=== PATIENT | male | born 1990 | race Caucasian/White ===

== ENCOUNTER 2017-06-04 08:11 | Day surgery (SDC) | payer OTHER ==
--- NOTE | 2017-05-28 15:46 | HP ---
PREOPERATIVE HISTORY AND PHYSICAL: DATE OF SURGERY/ADMISSION: 06/04/17 DATE OF OFFICE VISIT/ENCOUNTER: 05/27/17 ATTENDING SURGEON: Janet Quesada MD* (dictated by LUDMILA Harrison). PROCEDURE: Right index finger synovial biopsy metacarpophalangeal joint, bone biopsy, cortisone injection. CHIEF COMPLAINT: Right index finger MP joint pain and swelling. HISTORY OF PRESENT ILLNESS: This is a 26-year-old male, he is a field sales associate student at [employer] and he complains of pain in his right index finger MP joint since last August. He said that he injured it doing some boxing, but he has had some persistent swelling. He has had an extensive workup including blood work, ultrasound, and MRI. He was recently placed on sulfasalazine by Dr. Day for treatment of this. The patient reports that he does not think the medication has helped to this point. He also takes ibuprofen p.r.n. as well. 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 He denies any breaks in the skin and has not had any fevers. There is no associated numbness or tingling. After evaluation by and discussion with Dr. Quesada, he has agreed to proceed with surgical intervention at this time. PAST MEDICAL HISTORY: 1. Eczema. 2. History of skin cancer. 3. Suspected inflammatory arthritis. PAST SURGICAL HISTORY: 1. Skin cancer excision. 2. Deviated septum repair. 3. [place] teeth extraction. CURRENT MEDICATIONS: 1. Acetaminophen 325 mg 2 tabs q.6 hours p.r.n. 2. Glucosamine chondroitin 1500 complex 2 tabs daily. 3. Ibuprofen p.r.n. 4. Ketoconazole. 5. Multivitamin. 6. Sulfasalazine 500 mg twice daily. 7. Zinc 30 mg daily. ALLERGIES: No known drug allergies. FAMILY MEDICAL HISTORY: Ankylosing spondylitis and rheumatoid arthritis. 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 He denies tobacco use and illicit drug use. He does drink alcohol on occasion. REVIEW OF SYSTEMS: General: Negative for fevers, chills, or night sweats. No known anesthesia problems. HEENT: Negative for headache, lightheadedness, or syncopal episodes. Integumentary: Positive for eczema. Negative for abrasions or open wounds. Cardiothoracic: Negative for hypertension, chest pain, palpitations, or edema. Pulmonary: Negative for shortness of breath with exertion, chronic cough, COPD. GI: Negative for nausea, vomiting, diarrhea, constipation, or GERD. : Negative for nocturia, urinary frequency, urgency, history of UTIs, or kidney problems. Musculoskeletal: Positive for current complaint. Negative for chronic or intermittent back pain or history of fractures. Neurological: Negative for paresthesias, numbness, history of seizure, stroke, or epilepsy. Endocrine: Negative for diabetes and thyroid issues. Hematologic: Negative for easy bruising, anemia, excessive bleeding, or history of DVT. Infectious Disease: Negative for history of MRSA, hepatitis C, or HIV. PHYSICAL EXAMINATION GENERAL: Well-developed, well-nourished 26-year-old male, in no acute distress. VITAL SIGNS: Height 5 feet 9 inches, weight 140 pounds. Pulse rate 68, blood pressure 136/70. HEENT: Normocephalic, atraumatic. Pupils are equal, round, and reactive to light and accommodation. Extraocular movements are intact. Throat is clear. NECK: Supple. No palpable lymph nodes. PULMONARY: Lungs are clear to auscultation bilaterally. No wheezes, rales, or rhonchi. CARDIOVASCULAR: Regular rate and rhythm. S1, S2. No murmurs, rubs, or gallops. No edema. ABDOMEN: Positive bowel sounds, soft, nontender. MUSCULOSKELETAL: On exam of his right hand, he has some mild swelling of the index finger MP joint. There is no fluctuance or area of fluid collection. There is some boggy swelling. He has a little bit of lack of full flexion of the MP joint. He has full extension. There is tenderness to palpation about the joint. Neurovascular function is intact. NEUROLOGICAL: Alert and oriented x3. Cranial nerves II through XII are intact. Sensation is intact to light touch. IMAGING STUDIES: MRI shows right index finger MP synovitis as well as edema in the proximal phalanx and metacarpal. Ultrasound of the area also shows synovitis of the right index finger MP joint. IMPRESSION: Right index finger MP joint synovitis due to inflammatory arthritis , which has yet to be diagnosed. PLAN: The patient is scheduled to undergo a right index finger synovial biopsy , metacarpophalangeal joint, bone biopsy, cortisone injection with Dr. Quesada on 06/04/17. He will return to the office in 10 to 14 days postop for followup and suture removal. A prescription for Ultracet was e-scribed to the patient's pharmacy for postoperative pain management. LUDMILA HARRISON [id number]/[facility] #: [id number] [facility] CAMPUSGabriel
[~2017-06-04 08:11] MED LIST: Buffered Lidocaine 0.9% SYRIN* 5 ML/SYR SYRINGE INTRADERM ONE; Dexamethasone IV* 4 MG/ML 1 ML (4 MG) IV SLOW PU ONE; Dexamethasone IV* 4 MG/ML 1 ML (4 MG) ONE; Lidocaine 1% INJ* 10 MG/ML 30 ML SDV ONE; methylPREDNISolone ACETATE 80* 80 MG/ML 1 ML VIAL ONE
[2017-06-04] MEDS ORDERED: Propofol* 10 MG/ML 20 ML BTL IV PUSH ONE (08:51)
[2017-06-04] MEDS ORDERED: Ketorolac INJ* 30 MG/ML 1 ML VIAL ONE (08:51)
[2017-06-04] MEDS ORDERED: fentaNYL* 50 MCG/ML 2 ML VIAL (100 MCG VIAL) ONE (08:51)
[2017-06-04] MEDS ORDERED: Midazolam* 1 MG/ML 5 ML VIAL (5 MG) ONE (08:51)
[2017-06-04] MEDS ORDERED: Lidocaine 2% PF * 5 ML VIAL ONE (08:51)
[2017-06-04] MEDS ORDERED: oxyCODONE/Acetamin 5/325 MG* TAB PO PRN (08:57)
[2017-06-04] MEDS ORDERED: Naloxone* 0.4 MG/ML 1 ML VIAL IV PRN (08:57)
[2017-06-04] MEDS ORDERED: PROCHLORPERAZINE INJ 5 MG/ML 2 ML VIAL IV PRN (08:57)
[2017-06-04] MEDS ORDERED: fentaNYL* 50 MCG/ML 2 ML VIAL (100 MCG VIAL) IV PRN (08:57)
[2017-06-04] MEDS ORDERED: HYDROcodone/ACETAMIN 5-325 MG* 1 TAB PO PRN (08:57)
[2017-06-04] MEDS ORDERED: Ondansetron INJ* 2 MG/ML VIAL ONE (09:35)
[2017-06-04 10:34] VITALS: BP 119/72
--- NOTE | 2017-06-04 20:08 | OP ---
DATE OF OPERATION: 06/04/17 [facility] DATE OF : [birth year] SURGEON: Janet Quesdaa MD SAFETY COUNSELOR: LUDMILA Harrison ANESTHESIA: Local MAC. PRE-OP DIAGNOSIS: Right index finger metacarpophalangeal joint synovitis and arthritis. POST-OP DIAGNOSIS: Right index finger metacarpophalangeal joint synovitis and arthritis. OPERATIVE PROCEDURE: Right index finger metacarpophalangeal joint biopsy, bone biopsy, and cortisone injection. ESTIMATED BLOOD LOSS: Zero. TOURNIQUET TIME: About 20 minutes. INDICATIONS FOR PROCEDURE: Memo is a 26-year-old male who has had persistent swelling of his right index finger MP joint. This has been diagnosed as an inflammatory arthritis without specific cause by Dr. Day and he requests synovial biopsy for diagnostic purposes. Additionally, the patient has on MRI significant edema in his metacarpal and proximal phalanx of the right index finger. He presents for bone biopsy to rule out osteomyelitis and also for cortisone injection to treat the synovitis. DESCRIPTION OF PROCEDURE: The patient was brought to the operating room, was given a sedation anesthetic and a local infiltration of 10 cc of 1% plain lidocaine. The skin of his right hand and forearm was prepped and draped in the usual sterile fashion. The hand and forearm were exsanguinated and the tourniquet elevated to 250 mmHg. A longitudinal incision was made on the radial aspect of the index finger MP joint. We dissected bluntly through the subcutaneous tissue down to the extensor soria. A branch of the radial sensory nerve was retracted by the operating room surgical technician, Gladis Allen. Extensor soria was incised radial to the extensor tendons and then the MP joint capsule incised longitudinally, dorsal to the collateral ligament. We then had access to the MP joint and there was moderate amount of synovitis. This was debrided and sent for pathology. Next, a small hole was created in the metacarpal head and with a curette, some bony material was obtained and sent for culture and sensitivity. The wound was copiously irrigated with saline. The MP joint capsule was closed, separate from the extensor soria with 4-0 Vicryl suture and then the MP joint was injected with 80 mg Depo-Medrol and 2 cc of 1% plain lidocaine. The skin edges were reapproximated with 4-0 nylon suture. The wound was dressed with Xeroform, 4x4, Webril, and [place]an. The patient tolerated the procedure well, was brought to the recovery room in good condition. [id number]/[facility] #: [id number] MTDGabriel
== END 2017-06-04 10:34 | disposition home or self-care (01) ==
LOC: OREAST 08:11
PROVIDERS: ATTEND Orthopaedic Surgery
DX: M65.841 Other synovitis and tenosynovitis, right hand (principal); M13.841 Other specified arthritis, right hand
CPT/HCPCS: 87070; 87205; 88304; 88312; J1040; J1100; J1885; J2250; J2405; J2704; J3010